=== PATIENT | female | born 1960 | race Caucasian/White ===

== ENCOUNTER 2020-11-09 13:12 | Emergency (ER) | payer SELFPAY ==
[2020-11-09] MEDS ORDERED: Ondansetron 4 MG/2 ML SDV IVPUSH ONE (13:32)
[2020-11-09] MEDS ORDERED: Ketorolac 30 MG/ML SDV IVPUSH ONE (13:32)
[2020-11-09] MEDS ORDERED: Sodium Chloride 0.9% 1,000 ML IV ONE (13:32)
--- NOTE | 2020-11-09 13:34 | EDM.PDOC ---
ED HPI GENERAL MEDICAL PROBLEM - General Chief Complaint: Genitourinary Problem Stated Complaint: kidney stone Time Seen by Provider: 11/09/20 13:18 Source of Information: Reports: Patient History Limitations: Reports: No Limitations - History of Present Illness INITIAL COMMENTS - FREE TEXT/NARRATIVE: HISTORY AND PHYSICAL: History of present illness: Patient is a 56-year-old female who presents to the emergency room with complaints of dysuria, suprapubic and left flank pain. Patient states approximately 4 months ago she had a small kidney stone that she believes has "moved" in which it is causing her pain today. Patient denies any fever, chills, headache, change in vision, syncope or near syncope. Denies any chest pain, back pain, shortness of breath or cough. Denies any nausea, vomiting, diarrhea, constipation or dysuria. Has not noted any blood in urine or stool. Patient has been eating and drinking appropriately. Review of systems: As per history of present illness and below otherwise all systems reviewed and negative. Past medical history: As per history of present illness and as reviewed below otherwise noncontributory. Surgical history: As per history of present illness and as reviewed below otherwise noncontributory. Social history: See social history for further information Family history: As per history of present illness and as reviewed below otherwise noncontributory. Physical exam: General: Well developed and well nourished 59-year-old female. Alert and orientated x 3. Nontoxic in appearance and in no acute distress. Vital signs are stable and have been reviewed by me. Nursing notes were reviewed. HEENT: Atraumatic, normocephalic, pupils equal and reactive bilaterally, negative for conjunctival pallor or scleral icterus, mucous membranes moist, trachea midline. No drooling or trismus noted. No meningeal signs. No hot potato voice noted. Lungs: Clear to auscultation bilaterally. No wheezes, rales, or rhonchi. Normal work of breathing, no accessory muscles used. Heart: S1S2, regular rate and rhythm without overt murmur, gallops, or rubs. No JVD. No peripheral edema Abdomen: Soft, nondistended, nontender. Normoactive bowel sounds. Negative for masses. Left-sided costovertebral tenderness. Skin: Intact, warm, dry. No lesions or rashes noted. Hematologic: No petechiae or purpra. Mucosa appropriate color and normal nail bed color and refill. Extremities: Atraumatic, moves all extremities per self without difficulty or deficits, negative for cords or calf pain. Neurovascular unremarkable. Neuro: Awake, alert, oriented. Cranial nerves II through XII unremarkable. Cerebellum unremarkable. Motor and sensory unremarkable throughout. Exam nonfocal. Psychiatric: Mood and affect are appropriate. Normal thought process. Answering questions appropriately. Notes: *This patient was seen and evaluated during the 2019 SARS-CoV-2 novel coronavirus pandemic period. Community viral transmission is ongoing at time of this encounter and the emergency department is operating under pandemic response procedures. CT shows a 5 mm obstructing stone in the distal left ureter just proximal to the UVJ. Associated mild left hydroureteronephrosis. Multiple additional nonobstructing renal caliceal stones bilaterally. 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 There is soft tissue fullness in the adnexal regions bilaterally which is favor ed to represent the uterine horns, however not well evaluated without IV contrast. This could be further evaluated with nonemergent pelvic ultrasound if clinically indicated. I spoke with Dr Keene, urology at [facility] in [place], about this patient. We reviewed her lab work and CT scan. Patient can follow-up with her in the next 1 to 2 weeks. Encouraged her to increase her fluids and strain her urine. I have talked with the patient about today's findings, in addition to providing specific details for plan of care. Reassessment at the time of disposition demonstrates that the patient is in no acute distress. The patient is stable for discharge, counseling was provided and we discussed in great detail signs and symptoms that would prompt them to return to the Emergency Department. Medication, follow up and supportive care measures were reviewed and discussed. Voices understanding and is agreeable to plan of care. Denies any further questions or concerns at this time. Diagnostics: CBC, CMP, UA, CT abdomen and pelvis Therapeutics: IV fluid, Toradol, morphine, Zofran, Flomax Prescription: Fallentimber, Flomax Impression: Left renal stone Plan: 1. You have a 5mm obstructing stone on the left. I spoke with Dr Keene ([facility] Urologist). She would like you to be seen in the next 1-2 weeks. Increase your fluids to stay hydrated. Strain your urine every time you void (pee). If your symptoms should worsen, new symptoms develop or any of the signs and symptoms we discussed should arise please return to the emergency room or call 911 (if needed). 2. You can alternate Tylenol and ibuprofen as needed for pain and fever management. Fallentimber for moderate to sever pain. This medication may cause drowsiness, so do not take while driving or needing to be functioning outside the house. 3. We encourage you to follow up with your primary care provider and/or recommended specialist in the next few days for re-evaluation and further care/management. Definitive disposition and diagnosis as appropriate pending reevaluation and review of above. Left Pelvic Pain Score (Numeric/FACES): 10 - Related Data Home Meds: Home Meds Acetaminophen/HYDROcodone [Fallentimber 325-5 MG] 1 - 2 tab PO Q4H #20 tablet 11/09/20 [Rx] Tamsulosin [Tamsulosin 24 Hr] 0.4 mg PO DAILY 7 Days #7 cap.er 11/09/20 [Rx] Past Medical History - Past Health History Medical/Surgical History: Denies Medical/Surgical History [employer] History: Reports: - Infectious Disease History Infectious Disease History: Reports: Measles - Past Surgical History GI Surgical History: Reports: Appendectomy Female Surgical History: Reports: Section Musculoskeletal Surgical History: Reports: Other (See Below) Other Musculoskeletal Surgeries/Procedures:: left knee surgery, jaw surgery Social & Family History - Tobacco Use Tobacco Use Status *Q: Never Tobacco User - Caffeine Use Caffeine Use: Reports: None - Recreational Drug Use Recreational Drug Use: No ED ROS GENERAL - Review of Systems Review Of Systems: Comprehensive ROS is negative, except as noted in HPI. ED EXAM, RENAL/ - Physical Exam Exam: See Below (See dictation) Course - Vital Signs Last Recorded V/S: Last Vital Signs Temp 97.8 F 11/09/20 13:22 Pulse 68 11/09/20 13:22 Resp 18 11/09/20 13:22 BP 122/58 L 11/09/20 13:22 Pulse Ox 98 11/09/20 13:22 - Orders/Labs/Meds Orders: Active Orders 24 hr Category Date Time Status CULTURE URINE [RM] Stat Lab 11/09/20 12:45 Received DME for Discharge [COMM] Stat Oth 11/09/20 15:17 Ordered Labs: Laboratory Tests 0211/09/20 11/09/20 Range/Units 12:45 13:30 13:30 WBC 5.92 (4.0-11.0) K/uL RBC 4.41 (4.30-5.90) M/uL Hgb 13.5 (12.0-16.0) g/dL Hct 40.1 (36.0-46.0) % MCV 90.9 (80.0-98.0) fL MCH 30.6 (27.0-32.0) pg MCHC 33.7 (31.0-37.0) g/dL RDW Std Deviation 44.2 (28.0-62.0) fl RDW Coeff of Kristen 13 (11.0-15.0) % Plt Count 163 (150-400) K/uL MPV 11.30 (7.40-12.00) fL Neut % (Auto) 67.7 (48.0-80.0) % Lymph % (Auto) 24.3 (16.0-40.0) % [place] % (Auto) 6.3 (0.0-15.0) % Eos % (Auto) 1.4 (0.0-7.0) % Baso % (Auto) 0.3 (0.0-1.5) % Neut # (Auto) 4.0 (1.4-5.7) K/uL Lymph # (Auto) 1.4 (0.6-2.4) K/uL [place] # (Auto) 0.4 (0.0-0.8) K/uL Eos # (Auto) 0.1 (0.0-0.7) K/uL Baso # (Auto) 0.0 (0.0-0.1) K/uL Nucleated RBC % 0.0 /100WBC Nucleated RBCs # 0 K/uL Sodium 140 (136-145) mmol/L Potassium 3.8 (3.5-5.1) mmol/L Chloride 105 (98-107) mmol/L Carbon Dioxide 26.6 (21.0-32.0) mmol/L BUN 18 (7.0-18.0) mg/dL Creatinine 0.8 (0.6-1.0) mg/dL Est Cr Clr Drug Dosing 65.06 mL/min Estimated GFR (MDRD) > 60.0 ml/min Glucose 102 (74-106) mg/dL Calcium 8.6 (8.5-10.1) mg/dL Total Bilirubin 0.5 (0.2-1.0) mg/dL AST 20 (15-37) IU/L ALT 27 (14-63) IU/L Alkaline Phosphatase 64 (46-116) U/L Total Protein 7.2 (6.4-8.2) g/dL Albumin 3.7 (3.4-5.0) g/dL Globulin 3.5 (2.6-4.0) g/dL Albumin/Globulin Ratio 1.1 (0.9-1.6) Urine Color BROWN Urine Appearance SLT CLOUDY Urine pH 7.5 (5.0-8.0) Ur Specific [place] 1.020 (1.001-1.035) Urine Protein 100 H (NEGATIVE) mg/dL Urine Glucose (UA) NEGATIVE (NEGATIVE) mg/dL Urine Ketones TRACE H (NEGATIVE) mg/dL Urine Occult Blood LARGE H (NEGATIVE) Urine Nitrite NEGATIVE (NEGATIVE) Urine Bilirubin SMALL H (NEGATIVE) Urine Ictotest NEGATIVE Urine Urobilinogen 0.2 (<2.0) EU/dL Ur Leukocyte Esterase TRACE H (NEGATIVE) Urine RBC TOO NUMEROUS TO CT H (0-2/HPF) Urine WBC 0-3 (0-5/HPF) Ur Epithelial Cells RARE (NONE-FEW) Urine Bacteria FEW (NEGATIVE) Meds: Medications Discontinued Medications Generic Name Dose Route Start Last Admin Trade Name Freq PRN Reason Stop Dose Admin Hydrocodone Bitart/Acetaminophen 1 tab 11/09/20 15:26 Fallentimber 325-5 Mg PO 11/09/20 15:27 ONETIME ONE Sodium Chloride 1,000 mls @ 999 mls/hr 11/09/20 13:32 11/09/20 13:41 Normal Saline IV 11/09/20 14:32 999 mls/hr STAT ONE Administration Ketorolac Tromethamine 30 mg 11/09/20 13:32 11/09/20 13:40 Toradol IVPUSH 11/09/20 13:33 30 mg ONETIME ONE Administration Morphine Sulfate 2 mg 11/09/20 13:36 11/09/20 13:56 Morphine IVPUSH 11/09/20 13:37 2 mg ONETIME ONE Administration Ondansetron HCl 4 mg 11/09/20 13:32 11/09/20 13:41 Zofran IVPUSH 11/09/20 13:33 4 mg ONETIME ONE Administration Tamsulosin HCl 0.4 mg 11/09/20 14:09 11/09/20 14:19 Flomax PO 11/09/20 14:10 0.4 mg ONETIME ONE Administration Departure - Departure Time of Disposition: 15:29 Disposition: Home, Self-Care 01 Clinical Impression: Kidney stone - Discharge Information Prescriptions: Tamsulosin [Tamsulosin 24 Hr] 0.4 mg PO DAILY 7 Days #7 cap.er Acetaminophen/HYDROcodone [Fallentimber 325-5 MG] 1 - 2 tab PO Q4H #20 tablet Instructions: Kidney Stones, [id number] Referrals: PCP,None [Ordering Only Provider] - Forms: ED Department Discharge Additional Instructions: The following information is given to patients seen in the emergency department who are being discharged to home. This information is to outline your options for follow-up care. We provide all patients seen in our emergency department with a follow-up referral. The need for follow-up, as well as the timing and circumstances, are variable depending upon the specifics of your emergency department visit. If you don't have a primary care physician on staff, we will provide you with a referral. We always advise you to contact your personal physician following an emergency department visit to inform them of the circumstance of the visit and for follow-up with them and/or the need for any referrals to a consulting specialist. The emergency department will also refer you to a specialist when appropriate. This referral assures that you have the opportunity for follow-up care with a specialist. All of these measure are taken in an effort to provide you with optimal care, which includes your follow-up. Under all circumstances we always encourage you to contact your private physician who remains a resource for coordinating your care. When calling for follow-up care, please make the office aware that this follow-up is from your recent emergency room visit. If for any reason you are refused follow-up, please contact the [facility] Emergency Department at and asked to speak to the emergency department charge nurse. [facility] - Urology [address] [place] [id number] Thank you for choosing the [facility] emergency department in [place] for your medical needs today. It was a pleasure caring for you. Today you were seen in the emergency department for kidney stone. 1. You have a 5mm obstructing stone on the left. I spoke with Dr Keene ([facility] Urologist). She would like you to be seen in the next 1-2 weeks. Increase your fluids to stay hydrated. Strain your urine every time you void (pee). If your symptoms should worsen, new symptoms develop or any of the signs and symptoms we discussed should arise please return to the emergency room or call 911 (if needed). 2. You can alternate Tylenol and ibuprofen as needed for pain and fever management. Fallentimber for moderate to sever pain. This medication may cause drowsiness, so do not take while driving or needing to be functioning outside the house. 3. We encourage you to follow up with your primary care provider and/or recommended specialist in the next few days for re-evaluation and further care/management. Sepsis Event Note (ED) - Evaluation Sepsis Screening Result: No Definite Risk - Focused Exam Vital Signs: Vital Signs Temp Pulse Resp BP Pulse Ox 11/09/20 13:22 97.8 F 68 18 122/58 L 98 - My Orders Last 24 Hours: My Active Orders 11/09/20 12:45 CULTURE URINE [RM] Stat 11/09/20 15:17 DME for Discharge [COMM] Stat - Assessment/Plan Last 24 Hours: My Active Orders 11/09/20 12:45 CULTURE URINE [RM] Stat 11/09/20 15:17 DME for Discharge [COMM] Stat
[2020-11-09] MEDS ORDERED: Morphine 2 MG/ML SYRINGE IVPUSH ONE (13:36)
[2020-11-09 14:02] LABS: BLOOD UREA NITROGEN,BUN 18 mg/dL (7.0-18.0); CARBON DIOXIDE,CO2 26.6 mmol/L (21.0-32.0); CHLORIDE,CL 105 mmol/L (98-107); GLUCOSE RANDOM 102 mg/dL (74-106); POTASSIUM,K 3.8 mmol/L (3.5-5.1); SODIUM,NA 140 mmol/L (136-145)
[2020-11-09] MEDS ORDERED: Tamsulosin 0.4 MG Cap.ER PO ONE (14:09)
--- NOTE | 2020-11-09 14:59 | CT ---
INDICATION: Left flank pain, history of stones. TECHNIQUE: CT of the abdomen and pelvis without intravenous contrast. Coronal and sagittal reconstructions. COMPARISON: None. FINDINGS: Small low-attenuation lesion in the posterior right hepatic lobe is too small characterize but most likely represents a cyst. The unenhanced liver is otherwise normal in appearance. The unenhanced gallbladder, spleen, pancreas, and adrenal glands are normal in appearance. There is a 5 mm obstructing stone in the distal left ureter just proximal to the ureterovesicular junction (series 201, image 135). Mild upstream left hydroureteronephrosis. Multiple additional nonobstructing caliceal stones bilaterally, the largest of which measures 6 mm in the lower pole of the left kidney. No right hydronephrosis. The unenhanced bladder is normal appearance. There is a possible didelphys uterus, with soft tissue fullness within the adnexal regions bilaterally favored to represent uterine horns, however this is not well delineated without IV contrast. No bowel dilation. Moderate amount of stool throughout the colon. The appendix is not identified. No intraperitoneal free air or fluid. No lymphadenopathy. Schmorl`s node of the superior endplate of L3. The bones are otherwise unremarkable. The lung bases are clear. IMPRESSION: 1. 5 mm obstructing stone in the distal left ureter just proximal to the UVJ. Associated mild left hydroureteronephrosis. 2. Multiple additional nonobstructing renal caliceal stones bilaterally. 3. 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 There is soft tissue fullness in the adnexal regions bilaterally which is favored to represent the uterine horns, however not well evaluated without IV contrast. This could be further evaluated with nonemergent pelvic ultrasound if clinically indicated. Please note that all CT scans at this facility use dose modulation, iterative reconstruction, and/or weight-based dosing when appropriate to reduce radiation dose to as low as reasonably achievable. Dictated by Norma Sun MD @ Nov 09 2020 2:45PM Signed by Dr. Norma Sun @ Nov 09 2020 2:57PM
[2020-11-09] MEDS ORDERED: Acetaminophen/HYDROcodone 325-5 MG Tab PO ONE (15:26)
== END 2020-11-09 15:48 | disposition home or self-care (01) ==
LOC: MW.ED 13:12
DX: N13.2 Hydronephrosis with renal and ureteral calculous obstruction (principal)
CPT/HCPCS: 36415; 74176; 80053; 81001; 85025; 87086; 96374; 96375; 99284; A9270; J1885; J2270; J2405; J7030

== ENCOUNTER 2020-11-30 07:43 | Day surgery (SDC) | payer BC ==
[~2020-11-30 07:43] MED LIST: Lactated Ringers 1,000 ML IV SCH; Sodium Chloride 0.9% 10 ML SDV IV PRN; Sodium Chloride 0.9% 10 ML Syringe FLUSH PRN; Sodium Chloride 0.9% 2.5 ML Syringe FLUSH PRN; ceFAZolin 1 GM Vial IV ONE; ceFAZolin 1 GM in Premix Bag 1 BAG IV ONE
--- NOTE | 2020-11-30 08:31 | PCM.PREANE ---
Preanesthetic Assessment - Anesthesia/Transfusion/Family Hx Anesthesia History: Prior Anesthesia Without Reaction Type of Anesthesia Reaction: Excessive Nausea/Vomiting (after kidney stone removal) Family History of Anesthesia Reaction: No Transfusion History: No Prior Transfusion(s) Intubation History: Unknown - Review of Systems General: No Symptoms Pulmonary: No Symptoms Cardiovascular: No Symptoms Gastrointestinal: No Symptoms Neurological: No Symptoms Other: Reports: None - Physical Assessment Vital Signs: Last Vital Signs Temp 36.7 C 11/30/20 07:50 Pulse 80 11/30/20 07:50 Resp 15 11/30/20 07:50 BP 147/70 H 11/30/20 07:50 Pulse Ox 98 11/30/20 07:50 Height: 5 ft 6 in Weight: 56.699 kg ASA Class: 2 Mental Status: Alert & Oriented x3 Airway Class: Mallampati = 1 Dentition: Reports: Normal Dentition Thyro-Mental Finger Breadths: 2 Mouth Opening Finger Breadths: 2 ROM/Head Extension: Full Lungs: Clear to Auscultation, Normal Respiratory Effort Cardiovascular: Regular Rate, Regular Rhythm - Allergies Allergies/Adverse Reactions: Allergies Allergy/AdvReac Type Severity Reaction Status Date / Time erythromycin base Allergy "harsh on Verified 11/24/20 08:59 stomach" fluoxetine [From Prozac] Allergy "effected Verified 11/24/20 08:59 my nervous system" phenobarbital Allergy "was told Verified 11/24/20 09:00 not to take" - Blood Blood Available: No - Anesthesia Plan Pre-Op Medication Ordered: None - Acknowledgements Anesthesia Type Planned: General Anesthesia Pt an Appropriate Candidate for the Planned Anesthesia: Yes Alternatives and Risks of Anesthesia Discussed w Pt/Guardian: Yes Pt/Guardian Understands and Agrees with Anesthesia Plan: Yes PreAnesthesia Questionnaire - Past Health History Medical/Surgical History: Denies Medical/Surgical History HEENT History: Reports: Other (See Below) Other HEENT History: wears contacts/glasses Cardiovascular History: Reports: Heart Murmur Respiratory History: Reports: None Gastrointestinal History: Reports: None Genitourinary History: Reports: Renal Calculus (multiple) [employer] History: Reports: Musculoskeletal History: Reports: Back Pain, Chronic, Other (See Below) Other Musculoskeletal History: "muscle tightness" Neurological History: Reports: None Psychiatric History: Reports: None Endocrine/Metabolic History: Reports: None Hematologic History: Reports: None Immunologic History: Reports: None Oncologic (Cancer) History: Reports: None Dermatologic History: Reports: Eczema - Infectious Disease History Infectious Disease History: Reports: Measles - Past Surgical History Head Surgeries/Procedures: Reports: None HEENT Surgical History: Reports: Other (See Below) Other HEENT Surgeries/Procedures: corrective jaw surgery Cardiovascular Surgical History: Reports: None Respiratory Surgical History: Reports: None GI Surgical History: Reports: None, Appendectomy Female Surgical History: Reports: Section, Kidney stone extraction, Tubal Ligation Endocrine Surgical History: Reports: None Neurological Surgical History: Reports: None Musculoskeletal Surgical History: Reports: Other (See Below) Other Musculoskeletal Surgeries/Procedures:: left knee surgery x2, Oncologic Surgical History: Reports: None Dermatological Surgical History: Reports: None - SUBSTANCE USE Tobacco Use Status *Q: Never Tobacco User Recreational Drug Use History: No - HOME MEDS Home Medications: Home Meds Acetaminophen/HYDROcodone [[place] 325-5 MG] 1 - 2 tab PO Q4H #20 tablet 11/09/20 [Rx] Ibuprofen [Motrin] 800 mg PO TID PRN #30 tablet 11/09/20 [Rx] Hormone Cream 1 applic VAG DAILY 11/24/20 [History] - CURRENT (IN HOUSE) MEDS Current Meds: Current Medications Lactated Ringer's (Ringers, Lactated) 1,000 mls @ 100 mls/hr IV ASDIRECTED JANET Last Admin: 11/30/20 08:05 Dose: 100 mls/hr Documented by: Sodium Chloride (Sodium Chloride 0.9% 10 Ml Syringe) 10 ml FLUSH ASDIRECTED PRN PRN Reason: Keep Vein Open Sodium Chloride (Sodium Chloride 0.9% 2.5 Ml Syringe) 2.5 ml FLUSH ASDIRECTED PRN PRN Reason: Keep Vein Open Sodium Chloride (Sodium Chloride 0.9% 10 Ml Sdv) 10 ml IV ASDIRECTED PRN PRN Reason: IV Use Discontinued Medications Cefazolin Sodium/Dextrose 1 gm (/ Premix) 50 mls @ 100 mls/hr IV ONARRIVE ONE Stop: 11/30/20 06:29
[2020-11-30] MEDS ORDERED: fentaNYL 100 MCG/2 ML SDV ONE ×2 (08:36→10:38)
[2020-11-30] MEDS ORDERED: Ondansetron 4 MG/2 ML SDV ONE (08:36)
[2020-11-30] MEDS ORDERED: Dexamethasone 4 MG/ML 5 ML MDV ONE (08:36)
[2020-11-30] MEDS ORDERED: Propofol 200 MG/20 ML SDV ONE (08:36)
[2020-11-30] MEDS ORDERED: Midazolam 1 MG/ML 2 ML SDV ONE (08:36)
[2020-11-30] MEDS ORDERED: Rocuronium Bromide 50 MG/5 ML Syringe ONE (08:43)
[2020-11-30] MEDS ORDERED: Succinylcholine/Sod PF 100 MG/5 ML SYRINGE IV ONE (08:43)
[2020-11-30] MEDS ORDERED: ePHEDrine 50 MG/ML SDV ONE (09:25)
[2020-11-30] MEDS ORDERED: Iopamidol 408 MG/ML 20 ML SDV ONE (09:51)
[2020-11-30] MEDS ORDERED: Acetaminophen/HYDROcodone 325-5 MG Tab PO PRN (10:30)
[2020-11-30] MEDS: fentaNYL 100 MCG/2 ML SDV IVPUSH PRN ×4 (10:44→11:09)
[2020-11-30] MEDS ORDERED: Ketorolac 30 MG/ML SDV IVPUSH ONE (11:15)
--- NOTE | 2020-11-30 11:55 | PCM.POSTAN ---
POST ANESTHESIA ASSESSMENT - MENTAL STATUS Mental Status: Alert, Oriented - VITAL SIGNS Vital Signs: Last Vital Signs Temp 36.1 C 11/30/20 11:20 Pulse 62 11/30/20 11:50 Resp 15 11/30/20 11:50 BP 129/64 11/30/20 11:50 Pulse Ox 100 11/30/20 11:50 - RESPIRATORY Respiratory Status: Respiratory Rate WNL, Airway Patent, O2 Saturation Stable - CARDIOVASCULAR CV Status: Pulse Rate WNL, Blood Pressure Stable - GASTROINTESTINAL GI Status: No Symptoms - PAIN Pain Score: 5 - POST OP HYDRATION Hydration Status: Adequate & Stable - OBSERVATIONS Free Text/Narrative:: No anesthesia problems
--- NOTE | 2020-11-30 12:50 | PCM48HPAN ---
Post Anesthesia Note - EVALUATION WITHIN 48HRS OF ANESTHETIC Vital Signs in Normal Range: Yes Patient Participated in Evaluation: Yes Respiratory Function Stable: Yes Airway Patent: Yes Cardiovascular Function Stable: Yes Hydration Status Stable: Yes Pain Control Satisfactory: Yes Nausea and Vomiting Control Satisfactory: Yes Mental Status Recovered: Yes Vital Signs: Last Vital Signs Temp 36.1 C 11/30/20 11:20 Pulse 62 11/30/20 12:45 Resp 15 11/30/20 12:45 BP 146/65 H 11/30/20 12:45 Pulse Ox 100 11/30/20 12:45 - COMMENTS/OBSERVATIONS Free Text/Narrative:: No anesthesia problems
--- NOTE | 2020-11-30 16:58 | OR ---
SURGEON: Deborah Gregorio M.D. DATE OF PROCEDURE: 11/30/2020 PREOPERATIVE DIAGNOSIS: Left renal pelvis stone and left lower ureteral stone. POSTOPERATIVE DIAGNOSIS: Left renal pelvis stone; no left ureteral stone, that was passed. OPERATION: ESWL of left renal pelvis stone, ureteroscopy for the left lower ureteral stone. DESCRIPTION OF PROCEDURE: The patient was given general anesthesia. She was placed on the lithotripsy table. The position of the patient was adjusted, so the stone could be treated and eventually received 2400 shocks. At the end of the treatment, the shadow of the stone was dispersed as in good and adequate fragmentation of the stone. With that done, the patient was then placed in dorsal lithotomy position, prepped and draped in sterile drapes. Cystourethroscopy was done. A guidewire was advanced in the left ureter. The left lower ureter was then dilated using a UroMax II balloon dilator. With that done, the guidewire still in place. The rigid ureteroscope was advanced in the left lower ureter all the way up to the upper ureter and the stone was gone. With that done, the procedure was terminated. The guidewire was removed. The bladder was emptied, and the patient was moved to recovery room in good condition. PLAN: She will come to the office in about two weeks for a KUB and postop evaluation. NAHEED / MORENA /[id number]
== END 2020-11-30 12:48 | disposition home or self-care (01) ==
LOC: MW.SDS 07:43
PROVIDERS: ATTEND Urology
DX: N20.2 Calculus of kidney with calculus of ureter (principal); Z88.1 Allergy status to other antibiotic agents; Z88.8 Allergy status to other drugs, medicaments and biological substances; Z79.899 Other long term (current) drug therapy; Z98.890 Other specified postprocedural states
CPT/HCPCS: 50590; J0330; J0690; J1100; J1885; J2250; J2405; J2704; J3010; J7120; Q9966; 00873; C1769

== ENCOUNTER 2020-12-07 03:24 | Emergency (ER) | payer BC ==
[2020-12-07] MEDS ORDERED: Ketorolac 15 MG/ML SDV IVPUSH ONE (03:33)
[2020-12-07] MEDS ORDERED: HYDROmorphone 1 MG/ML Syringe IVPUSH ONE (03:33)
[2020-12-07] MEDS ORDERED: Sodium Chloride 0.9% 10 ML Syringe FLUSH PRN (03:33)
[2020-12-07] MEDS ORDERED: Sodium Chloride 0.9% 2.5 ML Syringe FLUSH PRN (03:33)
[2020-12-07] MEDS ORDERED: Sodium Chloride 0.9% 1,000 ML IV ONE (03:33)
[2020-12-07] MEDS ORDERED: Ondansetron 4 MG/2 ML SDV IVPUSH ONE (03:33)
--- NOTE | 2020-12-07 03:52 | EDM.PDOC ---
ED HPI GENERAL MEDICAL PROBLEM - General Chief Complaint: Abdominal Pain Stated Complaint: RIGHT STOMACH PAIN Time Seen by Provider: 12/07/20 03:31 - History of Present Illness INITIAL COMMENTS - FREE TEXT/NARRATIVE: HISTORY AND PHYSICAL: History of present illness: This is a 59-year-old female with a history significant for kidney stones in the past who had a recent stone and stent in her left kidney who presents ER today complaining of right sided flank and abdominal pain that started approximately 3 AM. Patient denies any recent fevers, shakes, chills, nausea, vomiting, diarrhea, dysuria, frequency, urgency. Patient reports that she did have some dysuria and urgency when the stent was placed recently. Patient denies any chest pain or shortness of breath. Patient has any recent cough cold or rhinorrhea. Review of systems: As per history of present illness and below otherwise all systems reviewed and negative. Past medical history: As per history of present illness and as reviewed below otherwise noncontr ibutory. Surgical history: As per history of present illness and as reviewed below otherwise noncontributory. Social history: No reported history of drug or alcohol abuse. Family history: As per history of present illness and as reviewed below otherwise noncontributory. Physical exam: This patient was seen and evaluated during the 2019 SARS-CoV-2 novel coronavirus pandemic period. Community viral transmission is ongoing at time of this encounter and the emergency department is operating under pandemic response procedures. Constitutional: Patient is oriented to person, place, and time. Appears well- developed and well-nourished. No distress. HEENT: Moist mucous membranes Head: Normocephalic and atraumatic Eyes: Right eye exhibits no discharge. Left eye exhibits no discharge. No scleral icterus Neck: Normal range of motion. No tracheal deviation present. Cardiovascular: Normal rate and regular rhythm. Pulmonary: Effort normal, no respiratory distress. Abd: Soft, nondistended, no rebound/guarding, no psoas or obturator signs, no tenderness at Mcberney's point, no Alonso's sign. Pt does not present with an exam that would be consistent with an acute surgical abdomen at this time. Patient was tenderness to palpation to the right flank and right lower quadrant. Musculoskeletal: Normal range of motion Neurologic: Alert and oriented to person, place and time. Skin: [place], warm and dry. Psychiatric: Normal mood and affect. Behavior is normal. Judgment and thought content normal. Nursing note and vital signs have been reviewed Diagnostics: CT scan of the abdomen pelvis reveals a 5 mm stone in the distal right ureter with hydronephrosis. CBC, CMP, within normal limits. Urinalysis with positive blood Therapeutics: Dilaudid 0.5 mg IV, Toradol 15 mg IV, NSS wide open x1 L, Zofran 4 mg IV Fentanyl 50 mg IV, Toradol 15 mg IV Flomax 0.4 mg p.o. Assessment and plan: Is a 59-year-old female who presents ER today was right flank and right lower quadrant abdominal pain that started early this morning. Patient will have a history of kidney stone in the past. Will obtain a CBC, CMP, urinalysis, lipase. Will get a CT scan of her abdomen pelvis to evaluate her right renal system. Patient be given Dilaudid and Toradol in the ED and will be reevaluated. 5:30 AM: Patient has been reevaluated multiple times in the ED and reports that she does feel significantly improved. Patient reports that she started feeling pain and discomfort starting to creep up on her and her right lower quadrant so she was given an additional 50 mg of fentanyl and 15 mg of IV Toradol will be reassessed. Patient does appear to be much more comfortable at this time. Patient will likely be able to be discharged home with follow-up with Dr. Scott in the morning. Reassessment at the time of disposition demonstrates that the patient is in no acute distress. The patient has remained stable throughout the entire ED visit and is without objective evidence for acute process requiring urgent intervention or hospitalization. The patient is stable for discharge, counseling is provided as documented above, discussed symptomatic treatment and specific conditions for return. I have spoken with the patient/caregiver and discussed todays findings, in addition to providing specific details for the plan of care. Questions are answered and there is agreement with the plan. Definitive disposition and diagnosis as appropriate pending reevaluation and review of above. Abdomen Pain Score (Numeric/FACES): 10 - Related Data Allergies Allergy/AdvReac Type Severity Reaction Status Date / Time erythromycin base Allergy "harsh on Verified 12/07/20 03:33 stomach" fluoxetine [From Prozac] Allergy "effected Verified 12/07/20 03:33 my nervous system" phenobarbital Allergy "was told Verified 12/07/20 03:33 not to take" Home Meds: Home Meds Ibuprofen 600 mg PO Q6HR PRN #30 tablet 12/07/20 [Rx] Ondansetron [Zofran ODT] 4 mg PO Q6H PRN #12 tab.dis 12/07/20 [Rx] traMADol [Ultram] 50 mg PO Q6H PRN #12 tab 12/07/20 [Rx] Past Medical History - Past Health History Medical/Surgical History: Denies Medical/Surgical History HEENT History: Reports: Other (See Below) Other HEENT History: wears contacts/glasses Cardiovascular History: Reports: Heart Murmur Respiratory History: Reports: None Gastrointestinal History: Reports: None Genitourinary History: Reports: Renal Calculus (multiple) CO[employer]OV[employer]ER History: Reports: Musculoskeletal History: Reports: Back Pain, Chronic, Other (See Below) Other Musculoskeletal History: "muscle tightness" Neurological History: Reports: None Psychiatric History: Reports: None Endocrine/Metabolic History: Reports: None Hematologic History: Reports: None Immunologic History: Reports: None Oncologic (Cancer) History: Reports: None Dermatologic History: Reports: Eczema - Infectious Disease History Infectious Disease History: Reports: Measles - Past Surgical History Head Surgeries/Procedures: Reports: None HEENT Surgical History: Reports: Other (See Below) Other HEENT Surgeries/Procedures: corrective jaw surgery Cardiovascular Surgical History: Reports: None Respiratory Surgical History: Reports: None GI Surgical History: Reports: None, Appendectomy Female Surgical History: Reports: Section, Kidney stone extraction, Tubal Ligation Endocrine Surgical History: Reports: None Neurological Surgical History: Reports: None Musculoskeletal Surgical History: Reports: Other (See Below) Other Musculoskeletal Surgeries/Procedures:: left knee surgery x2, Oncologic Surgical History: Reports: None Dermatological Surgical History: Reports: None Social & Family History - Family History Family Medical History: No Pertinent Family History - Caffeine Use Caffeine Use: Reports: None ED ROS GENERAL - Review of Systems Review Of Systems: See Below ED EXAM, GENERAL - Physical Exam Exam: See Below Course - Vital Signs Last Recorded V/S: Last Vital Signs Temp 96.6 F L 12/07/20 03:30 Pulse 72 12/07/20 04:15 Resp 18 12/07/20 04:15 BP 135/75 12/07/20 04:15 Pulse Ox 97 12/07/20 04:15 - Orders/Labs/Meds Orders: Active Orders 24 hr Category Date Time Status Sodium Chloride 0.9% [Normal Saline] 1,000 ml Med 12/07/20 05:00 Active IV .Bolus Sodium Chloride 0.9% [Saline Flush] Med 12/07/20 03:33 Active 10 ml FLUSH ASDIRECTED PRN Sodium Chloride 0.9% [Saline Flush] Med 12/07/20 03:33 Active 2.5 ml FLUSH ASDIRECTED PRN Saline Lock Insert [OM.PC] Stat Oth 12/07/20 03:34 Ordered Medication Orders Sodium Chloride (Normal Saline) 1,000 mls @ 999 mls/hr IV .Bolus ONE Stop: 12/07/20 06:00 Last Admin: 12/07/20 05:06 Dose: 999 mls/hr Documented by: YAMIL Sodium Chloride (Sodium Chloride 0.9% 10 Ml Syringe) 10 ml FLUSH ASDIRECTED PRN PRN Reason: Keep Vein Open Sodium Chloride (Sodium Chloride 0.9% 2.5 Ml Syringe) 2.5 ml FLUSH ASDIRECTED PRN PRN Reason: Keep Vein Open Labs: Laboratory Tests 12/07/20 12/07/20 12/07/20 Range/Units 03:35 03:35 04:15 WBC 9.85 (4.0-11.0) K/uL RBC 4.23 L (4.30-5.90) M/uL Hgb 12.9 (12.0-16.0) g/dL Hct 38.3 (36.0-46.0) % MCV 90.5 (80.0-98.0) fL MCH 30.5 (27.0-32.0) pg MCHC 33.7 (31.0-37.0) g/dL RDW Std Deviation 43.5 (28.0-62.0) fl RDW Coeff of Kristen 13 (11.0-15.0) % Plt Count 184 (150-400) K/uL MPV 11.00 (7.40-12.00) fL Neut % (Auto) 53.0 (48.0-80.0) % Lymph % (Auto) 39.0 (16.0-40.0) % Sierra % (Auto) 5.7 (0.0-15.0) % Eos % (Auto) 2.1 (0.0-7.0) % Baso % (Auto) 0.2 (0.0-1.5) % Neut # (Auto) 5.2 (1.4-5.7) K/uL Lymph # (Auto) 3.8 H (0.6-2.4) K/uL Sierra # (Auto) 0.6 (0.0-0.8) K/uL Eos # (Auto) 0.2 (0.0-0.7) K/uL Baso # (Auto) 0.0 (0.0-0.1) K/uL Nucleated RBC % 0.0 /100WBC Nucleated RBCs # 0 K/uL Sodium 138 (136-145) mmol/L Potassium 3.3 L (3.5-5.1) mmol/L Chloride 104 (98-107) mmol/L Carbon Dioxide 24.0 (21.0-32.0) mmol/L BUN 19 H (7.0-18.0) mg/dL Creatinine 1.1 H (0.6-1.0) mg/dL Est Cr Clr Drug Dosing 49.68 mL/min Estimated GFR (MDRD) 50.8 ml/min Glucose 125 H (74-106) mg/dL Calcium 8.2 L (8.5-10.1) mg/dL Total Bilirubin 0.3 (0.2-1.0) mg/dL AST 14 L (15-37) IU/L ALT 23 (14-63) IU/L Alkaline Phosphatase 66 (46-116) U/L Total Protein 7.0 (6.4-8.2) g/dL Albumin 3.5 (3.4-5.0) g/dL Globulin 3.5 (2.6-4.0) g/dL Albumin/Globulin Ratio 1.0 (0.9-1.6) Lipase 122 (73-393) U/L Urine Color YELLOW Urine Appearance HAZY Urine pH 6.5 (5.0-8.0) Ur Specific Fraser 1.020 (1.001-1.035) Urine Protein NEGATIVE (NEGATIVE) mg/dL Urine Glucose (UA) NEGATIVE (NEGATIVE) mg/dL Urine Ketones NEGATIVE (NEGATIVE) mg/dL Urine Occult Blood MODERATE H (NEGATIVE) Urine Nitrite NEGATIVE (NEGATIVE) Urine Bilirubin NEGATIVE (NEGATIVE) Urine Urobilinogen 0.2 (<2.0) EU/dL Ur Leukocyte Esterase NEGATIVE (NEGATIVE) Urine RBC 8-12 (0-2/HPF) Urine WBC 2-4 (0-5/HPF) Ur Epithelial Cells MODERATE (NONE-FEW) Urine Bacteria RARE (NEGATIVE) Urine Mucus LIGHT (NONE-MOD) Meds: Medications Generic Name Dose Route Start Last Admin Trade Name Freq PRN Reason Stop Dose Admin Sodium Chloride 1,000 mls @ 999 mls/hr 12/07/20 05:00 12/07/20 05:06 Normal Saline IV 12/07/20 06:00 999 mls/hr .Bolus ONE Administration Sodium Chloride 10 ml 12/07/20 03:33 Sodium Chloride 0.9% 10 Ml Syringe FLUSH ASDIRECTED PRN Keep Vein Open Sodium Chloride 2.5 ml 12/07/20 03:33 Sodium Chloride 0.9% 2.5 Ml Syringe FLUSH ASDIRECTED PRN Keep Vein Open Discontinued Medications Generic Name Dose Route Start Last Admin Trade Name Semajq PRN Reason Stop Dose Admin Fentanyl 50 mcg 12/07/20 04:59 12/07/20 05:06 Fentanyl 50 Mcg/Ml Sdv IVPUSH 12/07/20 05:00 50 mcg ONETIME ONE Administration Hydromorphone HCl 0.5 mg 12/07/20 03:33 12/07/20 03:42 Hydromorphone 1 Mg/Ml Syringe IVPUSH 12/07/20 03:34 0.5 mg ONETIME ONE Administration Sodium Chloride 1,000 mls @ 999 mls/hr 12/07/20 03:33 12/07/20 03:42 Normal Saline IV 12/07/20 04:33 999 mls/hr .Bolus ONE Administration Ketorolac Tromethamine 15 mg 12/07/20 03:33 12/07/20 03:42 Ketorolac 15 Mg/Ml Sdv IVPUSH 12/07/20 03:34 15 mg ONETIME ONE Administration Ketorolac Tromethamine 15 mg 12/07/20 04:59 12/07/20 05:06 Ketorolac 15 Mg/Ml Sdv IVPUSH 12/07/20 05:00 15 mg Q6H STA Administration Ondansetron HCl 4 mg 12/07/20 03:33 12/07/20 03:42 Ondansetron 4 Mg/2 Ml Sdv IVPUSH 12/07/20 03:34 4 mg ONETIME ONE Administration Tamsulosin HCl 0.4 mg 12/07/20 04:54 12/07/20 05:06 Tamsulosin 0.4 Mg Cap.Er PO 12/07/20 04:55 0.4 mg BIDPC STA Administration Departure - Departure Time of Disposition: 05:27 Disposition: Home, Self-Care 01 Condition: Good Clinical Impression: Kidney stone, Hydronephrosis of right kidney - Discharge Information Instructions: Hydronephrosis, Renal Colic, [id number] Referrals: Deric Crisostomo MD [Primary Care Provider] - Forms: ED Department Discharge Additional Instructions: You have been seen and evaluated in the ER today secondary to abdominal pain. Your ER work-up revealed that you have a 5 mm kidney stone in the distal aspect of your right ureter. Please make an appointment to see Dr. Scott today to be reevaluated for your kidney stone. You will be given a prescription for Ultram to assist you with your pain. You should take the remainder of the Flomax that you have at home once daily starting tomorrow. Please return to the ER if your pain worsens or if you have any new or concerning symptoms. [facility] - [facility]rology [address] [place] [id number] The following information is given to patients seen in the emergency department who are being discharged to home. This information is to outline your options for follow-up care. We provide all patients seen in our emergency department with a follow-up referral. The need for follow-up, as well as the timing and circumstances, are variable depending upon the specifics of your emergency department visit. If you don't have a primary care physician on staff, we will provide you with a referral. We always advise you to contact your personal physician following an emergency department visit to inform them of the circumstance of the visit and for follow-up with them and/or the need for any referrals to a consulting specialist. The emergency department will also refer you to a specialist when appropriate. This referral assures that you have the opportunity for follow-up care with a specialist. All of these measure are taken in an effort to provide you with optimal care, which includes your follow-up. Under all circumstances we always encourage you to contact your private physician who remains a resource for coordinating your care. When calling for follow-up care, please make the office aware that this follow-up is from your recent emergency room visit. If for any reason you are refused follow-up, please contact the [facility] Emergency Department at and asked to speak to the emergency department charge nurse. [facility] [address] [place] [id number] [facility] [address] [place] [id number] Sepsis Event Note (ED) - Evaluation Sepsis Screening Result: No Definite Risk - Focused Exam Vital Signs: Vital Signs Temp Pulse Resp BP Pulse Ox 12/07/20 04:15 72 18 135/75 97 12/07/20 03:30 96.6 F L 118 H 18 118/70 98 - My Orders Last 24 Hours: My Active Orders 12/07/20 03:33 Sodium Chloride 0.9% [Saline Flush] 10 ml FLUSH ASDIRECTED PRN Sodium Chloride 0.9% [Saline Flush] 2.5 ml FLUSH ASDIRECTED PRN 12/07/20 03:34 Saline Lock Insert [OM.PC] Stat 12/07/20 05:00 Sodium Chloride 0.9% [Normal Saline] 1,000 ml IV .Bolus - Assessment/Plan Last 24 Hours: My Active Orders 12/07/20 03:33 Sodium Chloride 0.9% [Saline Flush] 10 ml FLUSH ASDIRECTED PRN Sodium Chloride 0.9% [Saline Flush] 2.5 ml FLUSH ASDIRECTED PRN 12/07/20 03:34 Saline Lock Insert [OM.PC] Stat 12/07/20 05:00 Sodium Chloride 0.9% [Normal Saline] 1,000 ml IV .Bolus
[2020-12-07 04:03] LABS: POTASSIUM,K 3.3 mmol/L (3.5-5.1)
--- NOTE | 2020-12-07 04:37 | CT ---
INDICATION: Right flank abdominal pain. Status post appendectomy TECHNIQUE: CT Abdomen and pelvis without i.v. contrast. Coronal and sagittal reformats were obtained. COMPARISON: 11/09/2020 FINDINGS: Lower chest: Unremarkable. Liver: Unremarkable. Spleen: Unremarkable. Pancreas: Unremarkable. Gallbladder: Unremarkable. Kidney: There is a 5 mm stone present in the distal right ureter, just proximal to the ureterovesicular junction causing right hydroureter and right renal pelvic caliectasis. Multiple bilateral intrarenal stones are present measuring up to 4 mm. Adrenal: Unremarkable. Bowel: Moderate amount of stool is present throughout the colon which may be due to chronic constipation. Previous appendectomy noted with no significant appendiceal stump identified. Vascular: Unremarkable. Lymph: Unremarkable. Peritoneum: Unremarkable. No pneumoperitoneum is seen. No significant ascites is noted. Pelvis: Numerous bilateral pelvic phleboliths are present. A bicornuate or didelphys uterus is present without interval change. Soft tissue: Unremarkable. Bone: A Schmorl`s node is noted along the superior endplate of L3 without interval change. IMPRESSION: 1. There is a 5 mm stone present in the distal right ureter, just proximal to the ureterovesicular junction causing right hydroureter and right renal pelvic caliectasis. Dictated by Binh De La Fuente MD @ 12/07/2020 4:35:31 AM Please note that all CT scans at this facility use dose modulation, iterative reconstruction, and/or weight-based dosing when appropriate to reduce radiation dose to as low as reasonably achievable. Dictated by: Binh De La Fuente MD @ 12/07/2020 04:35:43 (Electronically Signed)
[2020-12-07] MEDS ORDERED: Tamsulosin 0.4 MG Cap.ER PO STA (04:54)
[2020-12-07] MEDS ORDERED: Ketorolac 15 MG/ML SDV IVPUSH STA (04:59)
[2020-12-07] MEDS ORDERED: fentaNYL 50 MCG/ML SDV IVPUSH ONE ×2 (04:59→05:59)
[2020-12-07] MEDS: Sodium Chloride 0.9% 1,000 ML IV ONE ×2 (05:06→05:54)
[2020-12-07] MEDS ORDERED: fentaNYL 100 MCG/2 ML SDV ONE (05:59)
[2020-12-07] MEDS ORDERED: fentaNYL 100 MCG/2 ML SDV IVPUSH STA (06:03)
== END 2020-12-07 06:35 | disposition home or self-care (01) ==
LOC: MW.ED 03:24
DX: N13.2 Hydronephrosis with renal and ureteral calculous obstruction (principal); Z79.899 Other long term (current) drug therapy; Z90.49 Acquired absence of other specified parts of digestive tract
CPT/HCPCS: 36415; 74176; 80053; 81001; 83690; 85025; 96374; 96375; 96376; 99284; A9270; J1170; J1885; J2405; J3010; J7030

== ENCOUNTER 2022-05-09 15:14 | Emergency (ER) | payer BC ==
[2022-05-09 18:28] LABS: CARBON DIOXIDE,CO2 22.9 mmol/L (21.0-32.0); POTASSIUM,K 3.5 mmol/L (3.5-5.1)
== END 2022-05-09 19:54 | disposition home or self-care (01) ==
LOC: MW.ED 15:14
DX: N39.0 Urinary tract infection, site not specified (principal); N93.9 Abnormal uterine and vaginal bleeding, unspecified; Z88.1 Allergy status to other antibiotic agents; Z88.8 Allergy status to other drugs, medicaments and biological substances; Z79.899 Other long term (current) drug therapy; Z90.49 Acquired absence of other specified parts of digestive tract
CPT/HCPCS: 36415; 74176; 74176-26; 80053; 81001; 83690; 85025; 87086; 87088; 87186; 99284

== ENCOUNTER 2022-10-31 00:21 | Emergency (ER) | payer BC ==
[2022-10-31] MEDS ORDERED: Morphine 4 MG/ML Syringe IVPUSH ONE (00:44)
[2022-10-31] MEDS ORDERED: Lactated Ringers 1,000 ML IV STA (00:46)
[2022-10-31] MEDS ORDERED: Ondansetron 4 MG/2 ML SDV IVPUSH ONE (00:46)
[2022-10-31] MEDS ORDERED: Sodium Chloride 0.9% 2.5 ML Syringe FLUSH PRN (00:48)
[2022-10-31] MEDS ORDERED: Sodium Chloride 0.9% 10 ML Syringe FLUSH PRN (00:48)
[2022-10-31] MEDS ORDERED: Sodium Chloride 0.9% 20 ML SDV IV PRN (00:48)
[2022-10-31 01:07] LABS: CARBON DIOXIDE,CO2 26.1 mmol/L (21.0-32.0); POTASSIUM,K 3.4 mmol/L (3.5-5.1)
[2022-10-31 01:24] LABS: CORONAVIRUS COVID-19 NAA NEGATIVE (NEGATIVE); INFLUENZA A NAA NEGATIVE (NEGATIVE); INFLUENZA B NAA NEGATIVE (NEGATIVE)
[2022-10-31] MEDS ORDERED: HYDROmorphone 1 MG/ML Syringe IVPUSH ONE (01:25)
[2022-10-31] MEDS ORDERED: Iopamidol 755 MG/ML 500 ML Multipack Bottle IVPUSH STA (01:54)
== END 2022-10-31 03:40 | disposition home or self-care (01) ==
LOC: MW.ED 00:21
DX: K56.7 Ileus, unspecified (principal); Z88.1 Allergy status to other antibiotic agents; Z88.8 Allergy status to other drugs, medicaments and biological substances; Z20.822 Contact with and (suspected) exposure to COVID-19
CPT/HCPCS: 0240U; 36415; 74178; 80053; 81001; 83605; 83690; 83735; 84484; 85025; 85610; 87040; 93005; 96361; 96374; 96375; 99284; J1170; J2270; J2405; J3490; J7120; Q9967; 93010

== ENCOUNTER 2024-03-28 07:17 | Emergency (ER) | payer BC ==
[2024-03-28] MEDS: Tetracaine HCl/PF 0.5% 4 ML Bottle EYELF ONE (08:22)
== END 2024-03-28 08:42 | disposition home or self-care (01) ==
LOC: MW.ED 07:17
DX: H02.89 Other specified disorders of eyelid (principal); Z75.8 Other problems related to medical facilities and other health care; Z88.8 Allergy status to other drugs, medicaments and biological substances
CPT/HCPCS: 99283; J3490

== ENCOUNTER 2024-09-18 19:26 | Emergency (ER) | payer BC ==
[2024-09-18 19:49] LABS: BASOPHILS ABSOLUTE AUTO 0.05 K/uL (0.00-0.20); BASOPHILS PERCENT AUTO 0.8 % (0.0-1.0); EOSINOPHILS ABSOLUTE AUTO 0.22 K/uL (0.00-0.45); EOSINOPHILS PERCENT AUTO 3.4 % (0.0-6.0); HEMATOCRIT 40.1 % (37.0-47.0); HEMOGLOBIN 13.5 g/dL (12.0-16.0); IMMATURE GRAN ABSOLUTE AUTO 0.01 K/uL (0.00-0.05); IMMATURE GRAN PERCENT AUTO 0.2 % (0.0-0.4); LYMPHOCYTES ABSOLUTE AUTO 2.75 K/uL (1.00-4.80); LYMPHOCYTES PERCENT AUTO 43.1 % (24.0-44.0); MEAN CORPUSCULAR HEMOGLOBIN 29.9 pg (28.0-32.0); MEAN CORPUSCULAR HGB CONC 33.7 g/dL (32.0-36.0); MEAN CORPUSCULAR VOLUME 88.7 fL (83.0-99.0); MEAN PLATELET VOLUME 10.4 fL (9.4-12.3); MONOCYTES ABSOLUTE AUTO 0.42 K/uL (0.00-0.80); MONOCYTES PERCENT AUTO 6.6 % (0.0-8.0); NEUTROPHILS ABSOLUTE AUTO 2.93 K/uL (1.80-7.70); NEUTROPHILS PERCENT AUTO 45.9 % (41.0-71.0); PLATELET COUNT,PLT 183 K/uL (150-400); RED BLOOD CELL COUNT 4.52 M/uL (4.10-5.30); WHITE BLOOD CELL COUNT,WBC 6.38 K/uL (3.9-11.3)
[2024-09-18 19:52] LABS: APPEARANCE,URINE CLEAR; BILIRUBIN,URINE NEGATIVE (NEGATIVE); COLOR,URINE YELLOW; GLUCOSE,URINE NEGATIVE (NEGATIVE); KETONES,URINE NEGATIVE (NEGATIVE); LEUKOCYTE ESTERASE,URINE NEGATIVE (NEGATIVE); NITRITE,URINE NEGATIVE (NEGATIVE); OCCULT BLOOD,URINE NEGATIVE (NEGATIVE); PROTEIN,URINE NEGATIVE (NEGATIVE); UROBILINOGEN,URINE 0.2 EU/dL (<2.0)
[2024-09-18 20:21] LABS: ALBUMIN 3.7 g/dL (3.4-5.0); BILIRUBIN TOTAL 0.3 mg/dL (0.2-1.0); CALCIUM 9.1 mg/dL (8.5-10.1); CARBON DIOXIDE,CO2 32.8 mmol/L (21.0-32.0); EST CRCL DRUG DOSING (CG) 52.45 mL/min; POTASSIUM,K 3.9 mmol/L (3.5-5.1); PROTEIN TOTAL,TP 7.4 g/dL (6.4-8.2)
[2024-09-18] MEDS: Ketorolac 30 MG/ML SDV IM ONE (20:29)
[2024-09-18] MEDS: oxyCODONE 5 MG Tab PO ONE ×2 (20:30→21:47)
[2024-09-18] MEDS: Ondansetron 4 MG Tab.DIS PO ONE (20:34)
[2024-09-18] MEDS: Acetaminophen 500 MG Tab PO ONE (20:38)
[2024-09-18] MEDS ORDERED: Sodium Chloride 0.9% 1,000 ML IV ONE (21:30)
[2024-09-18] MEDS ORDERED: Sodium Chloride 0.9% 10 ML Syringe FLUSH PRN (21:30)
== END 2024-09-18 21:55 | disposition home or self-care (01) ==
LOC: MW.ED 19:26
DX: N13.2 Hydronephrosis with renal and ureteral calculous obstruction (principal); Z90.49 Acquired absence of other specified parts of digestive tract; Z88.1 Allergy status to other antibiotic agents; Z88.8 Allergy status to other drugs, medicaments and biological substances; Z79.899 Other long term (current) drug therapy
CPT/HCPCS: 36415; 74176; 80053; 81003; 83605; 83690; 85025; 96372; 99284; A9270; J1885